=== PATIENT | female | born 1995 | race Caucasian/White ===

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

== ENCOUNTER 2019-02-17 15:46 | Emergency (ER) | payer BC ==
--- NOTE | 2019-02-17 17:57 | ED ---
Throat Pain/Nasal Congestion - HPI Summary HPI Summary: This patient is a 23 year old F presenting to [facility] with a chief complaint of constant eye pressure and vision issues since last night, 02/16/19. Patient reports started taking 10 mg pills of Lexopro 02/10/19. Pt reports that she was instructed to take pill for 3-5 days and then move up to a pill. Pt reports yesterday she moved up to and was fine until last night before bed when she could not focus on the TV as her vision was blurry. Pt reports this morning she woke up when what she describes as when you look at a bright light and look away and there is that rainbow occurred. Pt reports it has gotten better but there is still a pressure behind her eyes. Reports nausea, pupils dilated. Denies eye pain. Symptoms aggravated by nothing. Symptoms alleviated by nothing. - History of Current Complaint Chief Complaint: EDHeadache Time Seen by Provider: 02/17/19 16:40 Hx Obtained From: Patient Onset/Duration: Lasting Hours, Still Present Cough: None - Allergies/Home Medications Allergies/Adverse Reactions: Allergies Allergy/AdvReac Type Severity Reaction Status Date / Time No Known Allergies Allergy Verified 12/12/16 01:48 PMH/Surg Hx/FS Hx/Imm Hx Endocrine/Hematology History: Denies: Hx Diabetes Cardiovascular History: Denies: Hx Coronary Artery Disease, Hx Hypertension Sensory History: Reports: Hx Contacts or Glasses Opthamlomology History: Reports: Hx Contacts or Glasses Psychiatric History: Denies: Hx Eating Disorder - Surgical History Surgery Procedure, Year, and Place: none Infectious Disease History: No Infectious Disease History: Denies: Traveled Outside the [place] in Last 30 Days - Family History Known Family History: Negative: Hypertension - Social History Alcohol Use: Occasionally Substance Use Type: Reports: None Hx Tobacco Use: No Smoking Status (MU): Never Smoked Tobacco Review of Systems Positive: Blurred Vision, Other - eye pressure, pupils dilated, rainbow in vision; denies eye pain Positive: Nausea All Other Systems Reviewed And Are Negative: Yes Physical Exam - Summary Physical Exam Summary: General: Well appearing, no distress HEENT: PERRL, EOMI, vision as per nurse's note, Pressure 17 in left eye and 19 in the right eye. No nuchal rigidity. Cardiovascular: Skin is well perfused Pulmonary: No respiratory distress, no tachypnea Abdomen: Non-distended Skin: Warm, pink, dry MSK: No edema Psych: Normal affect Neuro: A&Ox3 Triage Information Reviewed: Yes Vital Signs On Initial Exam: Initial Vitals Temp Pulse Resp BP Pulse Ox 97.9 F 86 16 139/83 98 02/17/19 15:50 02/17/19 15:50 02/17/19 15:50 02/17/19 15:50 02/17/19 15:50 Vital Signs Reviewed: Yes Procedures - Sedation Patient Received Moderate/Deep Sedation with Procedure: No Diagnostics - Vital Signs Vital Signs Temp Pulse Resp BP Pulse Ox 02/17/19 15:50 97.9 F 86 16 139/83 98 - Laboratory Lab Statement: Any lab studies that have been ordered have been reviewed, and results considered in the medical decision making process. EENT Course/Dx - Course Course Of Treatment: 31-year-old female who presents with visual disturbance, visual acuity intact here, eye pressures within normal range, do not suspect acute process such as acute angle closure glaucoma. Patient states she feels slightly improved, will follow-up with her psychiatrist regarding medication side effect if she has persistent symptoms. - Diagnoses Provider Diagnoses: Visual disturbance, Headache Discharge ED - Sign-Out/Discharge Documenting (check all that apply): Patient Departure - discharge - Discharge Plan Condition: Stable Disposition: HOME Patient Education Materials: Blurred Vision (ED) [facility] Days Additional Instructions: You were seen in the emergency department for visual disturbance and a headache. Your exam is unremarkable and your visual acuity was 20/20 Please follow up with your primary care doctor in next 2-3 days and return to emergency department for worsening or concerning symptoms. It was a pleasure taking care of you today. - Billing Disposition and Condition Condition: STABLE Disposition: Home - Attestation Statements Document Initiated by Scribe: Yes Documenting Scribe: Maye Bedoya Provider For Whom Michelle is Documenting (Include Credential): Dr. Tawana Can MD Scribe Attestation: Maye Russo scribed for Dr. Tawana Can MD on 02/17/19 at 2205. Scribe Documentation Reviewed: Yes Provider Attestation: The documentation as recorded by the Maye lloyd accurately reflects the service I personally performed and the decisions made by me, Dr. Tawana Can MD Status of Scribe Document: Viewed
[2019-02-17 18:06] VITALS: BP 129/80
== END 2019-02-17 18:05 | disposition home or self-care (01) ==
LOC: ED 15:46
DX: H53.8 Other visual disturbances (principal); R51 Headache; R11.0 Nausea
CPT/HCPCS: 99281